=== PATIENT | female | born 1970 | race Caucasian/White ===

== ENCOUNTER → 2021-10-16 12:59 | Outpatient (CLI) | payer OTHER, SELFPAY ==
[2021-10-16 18:04] LABS: COVID19 -Nasal RAPID Negative (Negative)
== END ==
PROVIDERS: PCP Family Medicine; Visit Provider Family Medicine Sleep Medicine
DX: Z20.822 Contact with and (suspected) exposure to COVID-19 (principal)
CPT/HCPCS: 87635; C9803

== ENCOUNTER 2021-10-17 06:34 | Day surgery (SDC) | payer OTHER, SELFPAY ==
[2021-10-15 07:48] VITALS: BMI 35.4
[2021-10-17 06:59] VITALS: BP 114/71; PULSE 75; RESP 16; TEMP 35.7; O2SAT 99
[2021-10-17] MEDS: ACETAMINOPHEN 325 MG TABLET 975 MG PO (07:05)
[2021-10-17] MEDS: SCOPOLAMINE 1 PATCH TOP (07:06)
[2021-10-17] MEDS: GABAPENTIN 300 MG CAPSULE PO (07:06)
[2021-10-17 07:07] VITALS: BMI 35.4
[2021-10-17] MEDS: LACTATED RINGERS 1,000 ML 42 ML IV (07:27)
--- NOTE | 2021-10-17 07:37 | PM.PREOP ---
Pre-operative Note COVID-19 COVID-19 status: Negative Result date/Date tested (Pos, Neg/Pending): 10/16/21 Interval Note History & Physical reviewed/Exam performed by Physician: Yes Changes to H&P: No
--- NOTE | 2021-10-17 07:38 | PM.OP.1 ---
Operative Date/Time/Diagnoses Date of procedure: 10/17/21 Time of procedure: 07:38 Pre-op diagnosis: Left third toe soft tissue cyst, hammertoe Post-op diagnosis: same Procedure & Clinicians Procedure: Left third toe soft tissue cyst excision, distal interphalangeal joint arthroplasty Same procedure as scheduled: Yes Indications: 51-year-old female with ongoing cyst on the top of the left 3rd toe. Conservative measures have failed to alleviate the pain and control the cyst and she wished to have surgical intervention at this time. We spoke with the risks, potential complications, as well as expected outcomes. Consent was reviewed, no contraindications to the procedure at this time. Surgeon: Brigitte Ballard Click Yes if Unassisted: Yes Anesthesia Type: General Operative Notes Closure Type: primary Specimen(s): none sent Estimated Blood Loss (mL): 10 Tourniquet time (min): 21 Procedure in detail: The patient was brought to the operating room and placed on the operating table in the supine position. Tourniquet was placed about the left ankle. Patient is well-padded and appropriately supported. After induction of general anesthesia the left 3rd toe was prepared and local anesthesia was delivered. Foot and ankle were prepped and draped in the usual aseptic manner. The tourniquet was inflated. Incision was made over the 3rd toe distal interphalangeal joint, encompassing the cyst over the joint. The skin of the underlying cyst was week and this was ellipsed and excised. The incision was deepened through subcutaneous tissues being careful to identify and retract all vital neurovascular structures. All bleeders were cauterized and ligated as necessary. The capsule was entered dorsally at the distal interphalangeal joint and this immediately decompressed the cyst which was clear viscous fluid. The cyst itself measured about 3-4 mm in diameter. No purulent discharge was noted. The extensor tendon was transected at this location and this exposed the spurring of the dorsal phalanx base which seem to be just under the cyst itself. There did not appear to be any of this at the head of the intermediate phalanx. The soft tissue dorsally in this location had some changes with the associated with chronic development of the underlying irritation from the spur as well as the base of the development of cyst itself. The extensor tendon was not affected. The saw and rongeur were used to resect the dorsal joint spur from the base of the distal phalanx as well as the cartilaginous surface of that bone as well as the head of the intermediate phalanx. A rasp was used to reduce the sharp edges of the bones. Due to the small nature of the cyst and the immediate decompression and findings along base of the soft tissue the decision was made not to send any of soft tissue to pathology. The area was irrigated with copious amounts normal sterile saline. The toe showed ability for motion without crepitus on dorsiflexion and plantarflexion. The remaining capsule and extensor tendon was repaired across the former joint using 4-0 Vicryl. Subcutaneous closure was also closed performed with Vicryl. The tourniquet was deflated and a prompt hyperemic response was seen in the foot. Nylon suture used to close the skin. The foot was dressed with a lightly compressive sterile dressing and splint in alignment. Patient was then placed in a postoperative boot and transferred to PACU with vital signs stable. Post-operative Condition: stable Disposition: PACU Plan for aftercare: Following a period of postoperative monitoring, the patient will be discharged to home on written and oral postoperative instructions including keeping the dressing dry and intact, avoiding significant ambulation on the foot, although it is allowed for gentle weightbearing with caution. Icing and elevating the foot when seated home. DVT prevention techniques have been reviewed. For the 1st postoperative visit the dressing will be changed and close to the 3rd postoperative week we will likely remove the sutures.
[2021-10-17] MEDS: CEFAZOLIN 2 GM/20 ML SYRINGE IV (07:55)
--- NOTE | 2021-10-17 08:18 | SUR.OPER ---
Addendum entered by Lucita Moe R.N. 10/17/21 10:53: Bump under left hip, tape over blanket over right lower leg, left foot to sterile field. Original Note: Supine on padded OR bed, head on pillow, arms secured on padded arm boards at <90 degrees abduction, legs uncrossed, safety belt at thigh, tape over blanket over lower legs.
[2021-10-17] MEDS: LIDOCAINE 2% INJ MDV 5 ML INJ (08:29)
[2021-10-17] MEDS: BUPIVACAINE 0.5% (PF) VIAL 30 ML INJ (08:33)
[2021-10-17 09:00] VITALS: BP 125/81; PULSE 76; RESP 15; TEMP 35.7; O2SAT 98
[2021-10-17 09:05] VITALS: BP 123/85; PULSE 74; RESP 16; O2SAT 96
[2021-10-17 09:10] VITALS: BP 122/72; PULSE 73; RESP 12; O2SAT 97
[2021-10-17 09:14] VITALS: BP 117/57; PULSE 73; RESP 16; TEMP 36.7; O2SAT 97
[2021-10-17] MEDS: OXYCODONE IR 5 MG TABLET PO (09:22)
[2021-10-17 09:34] VITALS: BP 117/50; PULSE 69; RESP 16; TEMP 36.8; O2SAT 98
== END 2021-10-17 10:12 | disposition home or self-care (01) ==
PROVIDERS: PCP Family Medicine; Referring Provider Podiatrist; Visit Provider Podiatrist
PROC: (CPT 26535; principal; 2021-10-17 07:45)
DX: M67.472 Ganglion, left ankle and foot (principal); M20.42 Other hammer toe(s) (acquired), left foot; K21.9 Gastro-esophageal reflux disease without esophagitis; E66.9 Obesity, unspecified; Z68.35 Body mass index [BMI] 35.0-35.9, adult
CPT/HCPCS: 26535; 28092; 82962; J0690; J1100; J1885; J2250; J2405; J2704

== ENCOUNTER → 2021-12-11 12:10 | Outpatient (CLI) | payer OTHER, SELFPAY ==
[2021-12-11 12:39] LABS: COVID19 -Nasal RAPID Negative (Negative)
== END ==
PROVIDERS: PCP Family Medicine; Referring Provider Podiatrist; Visit Provider Podiatrist
DX: Z20.822 Contact with and (suspected) exposure to COVID-19 (principal)
CPT/HCPCS: 87635; C9803

== ENCOUNTER 2021-12-13 08:53 | Day surgery (SDC) | payer OTHER, SELFPAY ==
[2021-12-13 09:20] VITALS: BP 129/75; PULSE 70; RESP 16; TEMP 36.2; O2SAT 98; BMI 35.7
[2021-12-13] MEDS: LACTATED RINGERS 1,000 ML 42 ML IV (09:45)
--- NOTE | 2021-12-13 09:57 | PM.PREOP ---
Pre-operative Note COVID-19 COVID-19 status: Negative Result date/Date tested (Pos, Neg/Pending): 12/11/21 Interval Note History & Physical reviewed/Exam performed by Physician: Yes Changes to H&P: No
--- NOTE | 2021-12-13 09:58 | P.OP_ITS ---
Operative Date/Time/Diagnoses Date of procedure: 12/13/21 Time of procedure: 09:58 Pre-op diagnosis: Left third toe wound dehisence, question infection Post-op diagnosis: other (Left 3rd toe wound dehiscence, question infection. Micrometallic cluster fragments proximal incision.) Procedure & Clinicians Procedure: Left third toe culture, biopsy distal interphalangeal joint, removal of micro metallic cluster of fragments from proximal incision subcutaneously. Same procedure as scheduled: Yes Indications: 51 yo female s/p left third toe soft tissue cyst excision with distal interphalangeal joint arthroplasty performed on October 17, 2021 with delay in incision healing, pain to toe, and swelling of the toe. Experienced some wound dehisence and was treated locally for wound and given oral antibiotics. Further workup showed changes in the bones resected that may be normal post surgical but could not rule out superimposed infection. Also seen under MRI is micro metallic artifact in area, so there is question of foreign body irritating to the healing of the incision. Conservative measures failed to complete the healing and resolve her symptoms and she wished to have surgical intervention at this time. We once again discussed the risks, potential complications, expected outcomes, and reasoning behind the procedure. Consent was signed and no contraindications to the procedure at this time. Surgeon: Brigitte Ballard Click Yes if Unassisted: Yes Anesthesia Type: General Operative Notes Closure Type: primary Specimen(s): other (Bone portion from distal aspect of left third toe intermediate phalanx sent for gram stain and culture.) Estimated Blood Loss (mL): 2 Blood products transfused: none Tourniquet time (min): 0 Procedure in detail: Patient was brought to the operating room and placed on the operating table in the supine position. After induction of general anesthesia anesthesia using the above injectables was obtained to the 3rd metatarsal phalangeal joint and toe on the left foot. The foot was prepped and draped in usual aseptic manner. After a check of anesthesia the overlying eschar from the incision which was quite thin and basically clear was removed with a forceps. This showed near complete healing of incision except for the most distal aspect which was a little inflamed and enlarged. An incision was made in line with the same prior incision over the distal and intermediate phalanges. The incision was deepened through subcutaneous tissues being careful to identify and retract all vital neural and vascular structures. All bleeders were cauterized and ligated as necessary. Gentle dissection was carried down and I was able to see at the most proximal and lateral portion of the incision, a muted silver area suspicious for the micro metallic fragments noted on MRI. Very carefully this cluster was able to be dissected away and excised. This amounted to not a single shard but a few tiny spots in a discrete area. This was overlying the extensor tendon proximal to the location where it had been previously entered for the 1st procedure. This was within the subcutaneous tissues and not within the tendon or the bone. This does not have any additional fragments on remaining subcutaneous tissues on the medial side or anywhere else. This was passed from the field and our instrumentation was changed. The distal interphalangeal joint was entered, no purulent discharge or bony necrosis was noted. No abscesses were seen. The head of the intermediate phalanx looked like there was some enlargement of the soft tissues scarring over the head of the proximal phalanx medially so this as well as a [place] small portion of the bone in that area was resected using bone forceps and rongeur and passed from the field for culture. The same procedure was performed to the base of the distal phalanx in a separate culture container. Culture swab was also used in the former joint space for aerobic and anaerobic culture which was passed from the field. The area was irrigated along the entire incision with copious amounts of normal saline. The tourniquet was not used during the procedure. The toe was able to continue to move without crepitus and alignment is good. 4-0 nylon was used to close the former distal interphalangeal joint as well as the soft tissues. Nylon was used to the skin. The area was dressed with Adaptic 4x4s conform [place] stockinette and she will have her postsurgical shoe placed in the PACU. She was transferred the PACU with vital signs stable and vascular status intact Post-operative Condition: stable Disposition: PACU Plan for aftercare: Following a period of postoperative monitoring, the patient will be discharged to home on written and oral postoperative instructions including keeping the dressing dry and intact, avoiding significant ambulation on the foot, ok to ice behind the knee of operative foot, and elevating the foot when seated at home. DVT prevention techniques have been reviewed.
[2021-12-13] MEDS: SCOPOLAMINE 1 PATCH TOP (10:25)
[2021-12-13] MEDS: LIDOCAINE 2% W/EPI INJ 3 ML INJ (10:45)
--- NOTE | 2021-12-13 11:05 | SUR.OPER ---
Supine on padded OR bed, head on pillow, arms secured on padded arm boards at <90 degrees abduction, legs uncrossed, safety belt at thigh. Gel roll under left hip for operative positioning.
[2021-12-13] MEDS: CEFAZOLIN 2 GM/20 ML SYRINGE IV (11:10)
[2021-12-13 11:43] VITALS: BP 127/79; PULSE 90; RESP 14; TEMP 36.3; O2SAT 98
[2021-12-13 11:48] VITALS: BP 134/77; PULSE 79; RESP 12; O2SAT 99
[2021-12-13 11:53] VITALS: BP 136/71; PULSE 76; RESP 16; O2SAT 100
[2021-12-13 11:58] VITALS: BP 135/64; PULSE 83; RESP 14; O2SAT 97
[2021-12-13] MEDS: HYDROCODONE/ACET 5/325 TABLET 1 TAB PO (12:04)
[2021-12-13 12:06] VITALS: BP 149/61; PULSE 73; RESP 16; O2SAT 100
== END 2021-12-13 12:39 | disposition home or self-care (01) ==
PROVIDERS: PCP Family Medicine; Referring Provider Podiatrist; Visit Provider Podiatrist
PROC: (CPT 11044; principal; 2021-12-13 10:15)
DX: T81.30XA Disruption of wound, unspecified, initial encounter (principal); B95.7 Other staphylococcus as the cause of diseases classified elsewhere; Z18.89 Other specified retained foreign body fragments
CPT/HCPCS: 11044; 64450; 87070; 87075; 87077; 87176; 87186; 87205; J0690; J1100; J2250; J2405; J2704; J3010